=== PATIENT | female | born 1990 | race Caucasian/White ===

== ENCOUNTER 2020-01-20 20:47 | Emergency (ER) | payer SELFPAY ==
[~2020-01-20] VITALS: Ht 170.2 cm; Wt 68.0 kg
[2020-01-20] MEDS ORDERED: CHLO25 PO (21:40)
== END 2020-01-20 23:47 | disposition home or self-care (01) ==
LOC: ER 20:47
DX: F10.239 Alcohol dependence with withdrawal, unspecified (principal); R44.1 Visual hallucinations
CPT/HCPCS: 99284